=== PATIENT | female | born 2000 | race Two or more races ===

== ENCOUNTER 2022-02-04 06:45 | Inpatient (IN) | payer OTHER ==
[~2022-02-04] VITALS: Ht 160 cm; Wt 49.0 kg
[~2022-02-04 06:45] MED LIST: PRENATAL + DHA1 EAC1 PO
== END 2022-02-06 11:45 | disposition home or self-care (01) | DRG 807 ==
LOC: OB/GYN 06:45 → LDR 06:45 → OB/GYN 17:06 → SURG 02-11 15:47
PROVIDERS: ADMIT Specialist; ATTEND Specialist
PROC: 10E0XZZ Delivery of Products of Conception, External Approach (ICD-10-PCS; principal; 2022-02-04)
PROC: 0W8NXZZ Division of Female Perineum, External Approach (ICD-10-PCS; 2022-02-04)
PROC: 4A1HXCZ Monitoring of Products of Conception, Cardiac Rate, External Approach (ICD-10-PCS; 2022-02-04)
PROC: 0HQ9XZZ Repair Perineum Skin, External Approach (ICD-10-PCS; 2022-02-04)
DX: O70.1 Second degree perineal laceration during delivery (principal); Z37.0 Single live birth; Z3A.39 39 weeks gestation of pregnancy; Z20.822 Contact with and (suspected) exposure to COVID-19